=== PATIENT | female | born 1985 | race Caucasian/White ===

== ENCOUNTER 2017-03-09 16:27 | Emergency (ER) | payer OTHER ==
[2017-03-09 16:32] VITALS: BP 117/81; PULSE 86; TEMP 98.3; BMI 21.6
--- NOTE | 2017-03-09 17:07 | PDOC ---
History of Present Illness - General Chief Complaint: Injury Stated Complaint: SWOLLEN LT FOOT Time Seen by Provider: 03/09/17 16:54 History Source: Patient Exam Limitations: No Limitations - History of Present Illness Initial Comments: 03/09/17 17:11 My Chief complaint: Twisted left foot complaining of pain left foot. History of present illness: Patient is a 31-year-old female with no significant medical history here today complaining of pain and left dorsal foot since twisting it after tripping 3 days ago. Patient has slight swelling over her left second and third metatarsal areas with slight bruising. Patient is ambulating with limp. Patient has elevated the foot and has iced it but the pain would go away however it has not. Patient is unsure of status. She denies any numbness of left foot or any other injury. Occurred: reports: other (3 days ago ) Severity: Yes: moderate (left foot over 2nd & 3rd metatarsal area) Lower Extremity Pain Location: left: foot (over 2nd and 3rd mcp jt ) Method of Injury: Yes: twisted Modifying Factors: improves with: immobilization Lower Ext. Injury Location - Specific Injury Location Foot: left foot bone tenderness (over 2nd & 3rd metatarsal ) Extremity Pain Location - Extremity Pain Location Extremity Pain Locations: left: foot (over 2nd % 3rd metatarsal ) Past History - Past Medical History Allergies/Adverse Reactions: Allergies Allergy/AdvReac Type Severity Reaction Status Date / Time No Known Allergies Allergy Verified 03/09/17 16:32 Home Medications: Ambulatory Orders NK [No Known Home Medication] 03/09/17 Other medical history: NONE - Immunization History Td Vaccination: Yes Immunization Up to Date: Yes - Psycho/Social/Smoking Cessation Hx Anxiety: No Suicidal Ideation: No Smoking Status: No Smoking History: Never smoked Years of Tobacco Use: 0 Number of Cigarettes Smoked Daily: 0 Cigars Per Day: 0 Hx Alcohol Use: Yes (SOCIAL) Drug/Substance Use Hx: No Substance Use Type: None Review of Systems - Review of Systems Able to Perform ROS?: Yes Constitutional: No: Symptoms Reported HEENTM: No: Symptoms Reported Respiratory: No: Symptoms reported Cardiac (ROS): No: Symptoms Reported ABD/GI: No: Symptoms Reported : No: Symptoms Reported Musculoskeletal: Yes: Joint Pain (left foot over 2nd and 3rd metatarsal ), Joint Swelling (left foot over 2nd & 3rd metatarsal ) Integumentary: No: Symptoms Reported Neurological: No: Symptoms reported *Physical Exam - Vital Signs Last Vital Signs Temp Pulse Resp BP Pulse Ox 98.3 F 86 20 117/81 99 03/09/17 16:29 03/09/17 16:29 03/09/17 16:29 03/09/17 16:29 03/09/17 16:29 - Physical Exam General Appearance: Yes: Appropriately Dressed Vascular Pulses: Doralis-Pedis (L): 4+ Extremity: positive: Normal Capillary Refill, Normal Inspection, Tender (over left 2nd & 3rd metatarsal), Swelling (over left 2nd & 3rd metatarsal slight ) Integumentary: positive: Swelling (over left 2nd and 3rd metatarsal dorsal aspect) Neurologic: positive: Normal Response (left foot ), Respond to painful stimul ( left foot ). negative: Sensory Deficit (left foot ) Deep Tendon Reflexes: Ankle (L): 4+ (no induration ) Procedures - Consent Consent obtained: From Patient - Splinting Splint Location: Left: Foot Pre-Proc Neuro Vasc Exam: normal Issac Bandage: 3" Sling: No Complications: No Medical Decision Making - Medical Decision Making 03/09/17 17:13 Patient is a 31-year-old female with no significant medical history here today complaining of pain and left dorsal foot since twisting it after tripping 3 days ago. Patient has slight swelling over her left second and third metatarsal areas with slight bruising. Patient is ambulating with limp. Patient has elevated the foot and has iced it but the pain would go away however it has not. Patient is unsure of status. She denies any numbness of left foot or any other injury. R/O fracture left foot PLAN: urine hcg XRay left foot/ankle L to moderate soft tissue swelling over the dorsal aspect of the foot without gross evidence of a fracture or dislocation. Correlate clinically per Dr. Saji Davenport wrap to left foot crutches given Patient follow-up with orthopedist as soon as possible 03/09/17 18:29 *DC/Admit/Observation/Transfer Diagnosis at time of Disposition: Sprain of foot Qualifiers: Encounter type: initial encounter Laterality: left Qualified Code(s): S93.602A - Unspecified sprain of left foot, initial encounter - Discharge Dispostion Disposition: HOME Condition at time of disposition: Stable - Referrals Referrals: Bashir Dockery MD [Primary Care Provider] - Rafa Wilkes MD [Staff Physician] - - Patient Instructions Additional Instructions: Elevate left foot as much as possible and wear Issac wrap during the day take off at night and use crutches for ambulation Follow up with orthopedist pedis as soon as possible Take ibuprofen as needed as directed by home health aide for pain Patient voiced understanding of discharge instructions and all questions were answered
[2017-03-09] MEDS ORDERED: IBUPROFEN 600 MG TABLET (FP) PO ONE ×2 (17:39→17:54)
== END 2017-03-09 18:38 | disposition home or self-care (01) ==
LOC: JERFT 16:27 → JER 16:27 → JERFT 18:38
DX: S93.602A Unspecified sprain of left foot, initial encounter (principal); W01.0XXA Fall on same level from slipping, tripping and stumbling without subsequent striking against object, initial encounter; X50.1XXA Overexertion from prolonged static or awkward postures, initial encounter; Y93.89 Activity, other specified; Y92.89 Other specified places as the place of occurrence of the external cause
CPT/HCPCS: 73610-TC-LT; 73630-TC-LT; 84703; 99281-25

== ENCOUNTER 2019-01-10 19:10 | Emergency (ER) | payer OTHER ==
[2019-01-10 19:14] VITALS: BP 130/83; PULSE 76; TEMP 98.1; BMI 21.6
--- NOTE | 2019-01-10 19:57 | PDOC ---
*Physical Exam - Vital Signs Last Vital Signs Temp Pulse Resp BP Pulse Ox 98.1 F 76 18 130/83 100 01/10/19 19:12 01/10/19 19:12 01/10/19 19:12 01/10/19 19:12 01/10/19 19:12 ED Treatment Course - LABORATORY CBC & Chemistry Diagram: 01/10/19 20:37 01/10/19 20:37 Medical Decision Making - Medical Decision Making 01/10/19 19:56 Patient seen by the advanced practice provider under my direct supervision. Ancillary testing reviewed as necessary. I agree with plan as outlined by the advanced practice provider. *DC/Admit/Observation/Transfer Diagnosis at time of Disposition: Adnexal pain Low back pain Qualifiers: Chronicity: acute Back pain laterality: right Sciatica presence: without sciatica Qualified Code(s): M54.5 - Low back pain - Discharge Dispostion Disposition: HOME Condition at time of disposition: Stable - Prescriptions Prescriptions: Cyclobenzaprine HCl 5 mg PO HS #7 tablet Ibuprofen 600 mg PO Q6H #30 tablet - Referrals Referrals: Bashir Docekry MD [Primary Care Provider] - Joi Fisher DO [Staff Physician] - - Patient Instructions Printed Discharge Instructions: DI for Low Back Pain Additional Instructions: You were evaluated for your pain today. Your lab work and ultrasound does not show any evidence of cysts I suspect her pain is referred from her low back after your injury last week. Please take Motrin 600 mg every 6 hours for pain Please take the Flexeril before bed. Do not drink or drive after taking this medication as well make you sleepy. 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 - Post Discharge Activity Forms/Work/School Notes: Back to Work
[2019-01-10] MEDS ORDERED: ACETAMINOPHEN 325 MG TABLET (FP) PO ONE (20:03)
--- NOTE | 2019-01-10 20:04 | PDOC ---
History of Present Illness - General Chief Complaint: Pain Stated Complaint: PCP SENT [facility] Time Seen by Provider: 01/10/19 19:55 History Source: Patient Exam Limitations: No Limitations Past History - Travel Traveled outside of the country in the last 30 days: No Close contact w/someone who was outside of country & ill: No - Past Medical History Allergies/Adverse Reactions: Allergies Allergy/AdvReac Type Severity Reaction Status Date / Time No Known Allergies Allergy Verified 01/10/19 21:53 Home Medications: Ambulatory Orders Cyclobenzaprine HCl 5 mg PO HS #7 tablet 01/10/19 Ibuprofen 600 mg PO Q6H #30 tablet 01/10/19 COPD: No - Immunization History Td Vaccination: Yes Immunization Up to Date: Yes - Suicide/Smoking/Psychosocial Hx Smoking Status: No Smoking History: Never smoked Years of Tobacco Use: 0 Number of Cigarettes Smoked Daily: 0 Cigars Per Day: 0 Hx Alcohol Use: Yes (SOCIAL) Drug/Substance Use Hx: No Substance Use Type: None Review of Systems - Review of Systems Able to Perform ROS?: Yes Comments:: 01/10/19 20:02 CONSTITUTIONAL: Absent: fever, chills, diaphoresis, generalized weakness, malaise, loss of appetite HEENT: Absent: rhinorrhea, nasal congestion, throat pain, throat swelling, difficulty swallowing, mouth swelling, ear pain, eye pain, visual Changes CARDIOVASCULAR: Absent: chest pain, loss of consciousness, palpitations, irregular heart rate, peripheral edema RESPIRATORY: Absent: cough, shortness of breath, dyspnea with exertion, orthopnea, wheezing, stridor, hemoptysis GASTROINTESTINAL: Absent: abdominal pain, abdominal distension, nausea, vomiting, diarrhea, constipation, melena, hematochezia GENITOURINARY: Present: R pelvic pain Absent: dysuria, frequency, urgency, hesitancy, hematuria , flank pain, genital pain MUSCULOSKELETAL: Absent: myalgia, arthralgia, joint swelling SKIN: Absent: rash, itching, pallor HEMATOLOGIC/IMMUNOLOGIC: Absent: easy bleeding, easy bruising, lymphadenopathy, frequent infections ENDOCRINE: Absent: unexplained weight gain, unexplained weight loss, heat intolerance, cold intolerance NEUROLOGIC: Absent: headache, focal weakness or paresthesias, dizziness, unsteady gait, seizure, mental status changes, bladder or bowel incontinence PSYCHIATRIC: Absent: anxiety, depression, suicidal or homicidal ideation, hallucinations. Is the patient limited Lao proficient: No *Physical Exam - Vital Signs Last Vital Signs Temp Pulse Resp BP Pulse Ox 98.1 F 76 18 130/83 100 01/10/19 19:12 01/10/19 19:12 01/10/19 19:12 01/10/19 19:12 01/10/19 19:12 - Physical Exam Comments: 01/10/19 20:02 GENERAL: Well developed, well nourished. Awake and alert. No acute distress. HEENT: Normocephalic, atraumatic. PERRLA, EOMI. No conjunctival pallor. Sclera are non- icteric. Moist mucous membranes. Oropharynx is clear. NECK: Supple. Full ROM. No JVD. Carotid pulses 2+ and symmetric, without bruits. No thyromegaly. No lymphadenopathy. CARDIOVASCULAR: Regular rate and rhythm. No murmurs, rubs, or gallops. Distal pulses are 2+ and symmetric. PULMONARY: No evidence of respiratory distress. Lungs clear to auscultation bilaterally. No wheezing, rales or rhonchi. ABDOMINAL: TTP of the R adenexa. Soft. Non-distended. No rebound or guarding. No organomegaly. Normoactive bowel sounds. MUSCULOSKELETAL Normal range of motion at all joints. No bony deformities or tenderness. No CVA tenderness. EXTREMITIES: No cyanosis. No clubbing. No edema. No calf tenderness. SKIN: Warm and dry. Normal capillary refill. No rashes. No jaundice. NEUROLOGICAL: Alert, awake, appropriate. Cranial nerves 2-12 intact. No deficits to light touch and temperature in face, upper extremities and lower extremities. No motor deficits in the in face, upper extremities and lower extremities. Normoreflexic in the upper and lower extremities. Normal speech. Toes are down- going bilaterally. Gait is normal without ataxia. PSYCHIATRIC: Cooperative. Good eye contact. Appropriate mood and affect. ED Treatment Course - LABORATORY CBC & Chemistry Diagram: 01/10/19 20:37 01/10/19 20:37 Medical Decision Making - Medical Decision Making 01/10/19 20:06 Patient is a 33-year-old female past medical history of ovarian cysts, who presents to the emergency department today for right lower pelvic pain. Patient states that her pain began Tuesday and has not gotten better. She states she noticed the pain began after lifting a family member up the stairs. She states that she feels a pressure in that area. States her last menstrual cycle was on . She is sexually active with one partner her . Denies fevers, chills, vaginal bleeding, foul-smelling discharge, rashes, nausea, vomiting and diarrhea. A/P: Lower pelvic cramping On exam right adnexal tenderness. Pt defers pelvic exam as she is going for ultrasound Given history of cysts, we'll obtain transvaginal ultrasound Basic labs and urine ordered. Reevaluate 01/10/19 23:20 Lab work is unremarkable, no UTI TVUS shows a uterine leieoma, no cysts on the R side Pt reports dysparinuria on TVUS and pain along the R adenexa. No reported CMT. Possible muscular strain? DC home with supportive therapy and MARRIAGE COUNSELOR follow up I discussed the physical exam findings, ancillary test results and final diagnoses with the patient. I answered all of the patient's questions. The patient was satisfied with the care received and felt comfortable with the discharge plan and treatment plan. The Patient agrees to follow up with the primary care physician/specialist within 24-72 hours. Return precautions were given. *DC/Admit/Observation/Transfer Diagnosis at time of Disposition: Adnexal pain Low back pain Qualifiers: Chronicity: acute Back pain laterality: right Sciatica presence: without sciatica Qualified Code(s): M54.5 - Low back pain - Discharge Dispostion Disposition: HOME Condition at time of disposition: Stable Decision to Admit order: No - Prescriptions Prescriptions: Cyclobenzaprine HCl 5 mg PO HS #7 tablet Ibuprofen 600 mg PO Q6H #30 tablet - Referrals Referrals: Bashir Dockery MD [Primary Care Provider] - Joi Fisher DO [Staff Physician] - - Patient Instructions Printed Discharge Instructions: DI for Low Back Pain Additional Instructions: You were evaluated for your pain today. Your lab work and ultrasound does not show any evidence of cysts I suspect her pain is referred from her low back after your injury last week. Please take Motrin 600 mg every 6 hours for pain Please take the Flexeril before bed. Do not drink or drive after taking this medication as well make you sleepy. Please follow up with MARRIAGE COUNSELOR this week if her symptoms are not improving Return to the ER for any new or worsening symptoms. - Post Discharge Activity Forms/Work/School Notes: Back to Work
[2019-01-10 20:57] LABS: BASO % 1.2 % (0-2.0); EOS % 1.8 % (0-4.5); HEMATOCRIT 36.2 % (32.4-45.2); HEMOGLOBIN 12.2 GM/dL (10.7-15.3); LYMPH % 33.7 % (8-40); MCH 31.1 pg (25.7-33.7); MCHC 33.7 g/dl (32.0-36.0); MEAN CELL VOLUME 92.2 fl (80-96); MEAN PLT VOLUME 8.9 fl (7.5-11.1); MONO % 6.5 % (3.8-10.2); NEUT % 56.8 % (42.8-82.8); PLATELET COUNT 272 K/MM3 (134-434); RBC 3.93 M/mm3 (3.60-5.2); RDW 12.5 % (11.6-15.6); WHITE BLOOD COUNT 11.1 K/mm3 (4.0-10.0)
[2019-01-10] MEDS ORDERED: ACETAMINOPHEN 325 MG TABLET (FP) ONE (20:58)
[2019-01-10 21:11] LABS: INR 0.95 (0.83-1.09); PROTHROMBIN TIME (PATIENT) 11.2 SEC (9.7-13.0)
[2019-01-10 21:12] LABS: PH,URINE 6.5 (5.0-8.0); URINE APPEARANCE CLEAR; URINE BILIRUBIN NEGATIVE (NEGATIVE); URINE COLOR YELLOW; URINE GLUCOSE (UA) NEGATIVE (NEGATIVE); URINE KETONE 1+ (NEGATIVE); URINE LEUK ESTERASE NEGATIVE (NEGATIVE); URINE NITRITE NEGATIVE (NEGATIVE); URINE PROTEIN NEGATIVE (NEGATIVE); URINE UROBILINOGEN 0.2 mg/dL (0.2-1.0)
[2019-01-10 21:15] LABS: HCG,QUALITATIVE URINE Negative
[2019-01-10 21:20] LABS: ALBUMIN 4.3 g/dl (3.4-5.0); ALK PHOS 59 U/L (45-117); ANION GAP 7 MMOL/L (8-16); BILIRUBIN,TOTAL 0.4 mg/dL (0.2-1); BLOOD UREA NITROGEN 11 mg/dL (7-18); CALCIUM 9.3 mg/dL (8.5-10.1); CHLORIDE 103 mmol/L (98-107); CO2 28 mmol/L (21-32); CREATININE 0.6 mg/dL (0.55-1.3); GLUCOSE,RANDOM 92 mg/dL (74-106); POTASSIUM 4.4 mmol/L (3.5-5.1); SGOT/AST 14 U/L (15-37); SGPT/ALT 21 U/L (13-61); SODIUM 137 mmol/L (136-145); TOT PROT 7.5 g/dl (6.4-8.2)
== END 2019-01-10 23:50 | disposition home or self-care (01) ==
LOC: JER 19:10
DX: R10.31 Right lower quadrant pain (principal); M54.5 Low back pain
CPT/HCPCS: 36415; 76830-TC; 80053; 81003; 84703; 85025; 85610; 99282-25

== ENCOUNTER 2019-05-28 14:05 | Emergency (ER) | payer OTHER ==
[2019-05-28 14:11] VITALS: BP 121/77; PULSE 91; TEMP 98; BMI 22.4
[2019-05-28] MEDS ORDERED: IBUPROFEN 600 MG TABLET (FP) PO ONE ×2 (14:11→15:32)
--- NOTE | 2019-05-28 14:11 | PDOC ---
Rapid Medical Evaluation Medical Evaluation: Allergies Allergy/AdvReac Type Severity Reaction Status Date / Time No Known Allergies Allergy Verified 01/10/19 21:53 I have performed a brief in-person evaluation of this patient. The patient presents with a chief complaint of: sprained R ankle tonight; heard pop; was hearing heels Pertinent physical exam findings: R ankle/foot normal color, +swelling and pain along R lateral malleolus; RLE neurovascularly intact I have ordered the following: Xray, Motrin The patient will proceed to the ED for further evaluation. 05/28/19 14:09
--- NOTE | 2019-05-28 15:44 | PDOC ---
History of Present Illness - General Chief Complaint: Injury Stated Complaint: RT ANKLE INJURY Time Seen by Provider: 05/28/19 14:08 History Source: Patient Exam Limitations: No Limitations - History of Present Illness Initial Comments: 05/28/19 15:37 33 year old female with no significant medical or significant medical history presents with injury to right ankle and foot. Patient reports while walking home in heels twisted her ankle and heard a pop sound. Reports pain with movement and weight bearing. Used ice compress with no relief of symptoms. Occurred: reports: this morning Severity: Yes: moderate Lower Extremity Pain Location: right: foot, ankle Method of Injury: Yes: twisted Modifying Factors: improves with: immobilization, pain medication Lower Ext. Injury Location - Specific Injury Location Hips: bilateral hip: no evidence of injury Legs: bilateral: normal inspection Knees: bilateral no evidence of injury Ankle: right limited range of motion, right swelling Foot: right foot pain, right foot swelling Extremity Pain Location - Extremity Pain Location Extremity Pain Locations: right: foot, ankle Past History - Travel Traveled outside of the country in the last 30 days: No Close contact w/someone who was outside of country & ill: No - Past Medical History Allergies/Adverse Reactions: Allergies Allergy/AdvReac Type Severity Reaction Status Date / Time No Known Allergies Allergy Verified 05/28/19 14:12 Home Medications: Ambulatory Orders Cyclobenzaprine HCl 5 mg PO HS #7 tablet 01/10/19 Ibuprofen 600 mg PO Q6H #30 tablet 01/10/19 Ibuprofen 600 mg PO TID #10 tablet 05/28/19 COPD: No - Immunization History Td Vaccination: Yes Immunization Up to Date: Yes - Suicide/Smoking/Psychosocial Hx Smoking Status: No Smoking History: Never smoked Years of Tobacco Use: 0 Number of Cigarettes Smoked Daily: 0 Cigars Per Day: 0 Hx Alcohol Use: Yes Drug/Substance Use Hx: No Substance Use Type: None Review of Systems - Review of Systems Able to Perform ROS?: Yes Is the patient limited [place] proficient: No Constitutional: No: Chills, Fever HEENTM: No: Nose Pain, Throat Pain Respiratory: No: Shortness of Breath, Wheezing Cardiac (ROS): No: Edema, Lightheadedness ABD/GI: No: Constipated, Poor Appetite, Poor Fluid Intake Integumentary: No: Bruising, Erythema Neurological: No: Numbness, Tingling *Physical Exam - Vital Signs Last Vital Signs Temp Pulse Resp BP Pulse Ox 98.0 F 91 H 16 121/77 97 05/28/19 14:05/28/19 14:05/28/19 14:05/28/19 14:05/28/19 14:09 - Physical Exam General Appearance: Yes: Nourished, Appropriately Dressed HEENT: positive: EOMI, SHAWN, TMs Normal, Pharynx Normal Neck: positive: Supple. negative: Lymphadenopathy (R), Lymphadenopathy (L) Respiratory/Chest: positive: Lungs Clear Cardiovascular: positive: Regular Rhythm, Regular Rate Extremity: positive: Swelling, Erythema Integumentary: positive: Bruising Neurologic: positive: straight truck driver II-XII NML intact, Fully Oriented Medical Decision Making - Medical Decision Making 05/28/19 15:46 33 year old female with no significant medical or significant medical history presents with injury to right ankle and foot. Plan analgesia xray of right foot and ankle 05/28/19 16:22 xray negative for fracture awa wrap applied and patient referred to orthopedics for follow up *DC/Admit/Observation/Transfer Diagnosis at time of Disposition: Left ankle sprain Qualifiers: Encounter type: initial encounter Involved ligament of ankle: unspecified ligament Qualified Code(s): S93.402A - Sprain of unspecified ligament of left ankle, initial encounter - Discharge Dispostion Disposition: HOME Condition at time of disposition: Good Decision to Admit order: No - Prescriptions Prescriptions: Ibuprofen 600 mg PO TID #10 tablet - Referrals Referrals: Bashir Dockery MD [Primary Care Provider] - - Patient Instructions Printed Discharge Instructions: DI for Ankle Sprain Additional Instructions: apply ice compress to ankle for 20 minutes for 3 to 4 minutes Elevated leg at rest may remove awa wrap for showering and sleeping Call ortho for follow up appointment - Post Discharge Activity Forms/Work/School Notes: Back to Work
== END 2019-05-28 16:30 | disposition home or self-care (01) ==
LOC: JERFT 14:05
DX: S93.401A Sprain of unspecified ligament of right ankle, initial encounter (principal); X50.1XXA Overexertion from prolonged static or awkward postures, initial encounter; Y93.01 Activity, walking, marching and hiking; Y92.89 Other specified places as the place of occurrence of the external cause; Y99.8 Other external cause status
CPT/HCPCS: 73610-TC-RT-FY; 73630-TC-RT-FY; 99281-25

== ENCOUNTER 2023-01-17 03:49 | Day surgery (SDC) | payer OTHER ==
[2023-01-13 12:06] VITALS: BMI 21.1
[2023-01-17] MEDS ORDERED: IBUPROFEN 400 MG TABLET (FP) PO PRN (07:58)
[2023-01-17] MEDS ORDERED: ACETAMINOPHEN 325 MG TABLET (FP) PO PRN (07:58)
[2023-01-17] MEDS ORDERED: oxyCODONE HCL 5 MG TABLET PO PRN (08:41)
[2023-01-17] MEDS ORDERED: ONDANSETRON 4 MG/2 ML VIAL IVPUSH PRN (08:41)
[2023-01-17] MEDS ORDERED: LACTATED RINGERS SOLUTION 1,000 ML IV SCH (08:45)
[2023-01-17] MEDS ORDERED: PROPOFOL 20 ML ONE (08:52)
[2023-01-17] MEDS ORDERED: MIDAZOLAM HCL 2 MG/2 ML SINGLE DOSE VIAL ONE (08:52)
[2023-01-17] MEDS ORDERED: KETOROLAC TROMETHAMINE 30 MG/1 ML VIAL ONE (09:19)
[2023-01-17] MEDS ORDERED: DEXAMETHASONE SOD PHOSPHATE 4 MG/1 ML VIAL ONE (09:19)
[2023-01-17] MEDS ORDERED: ONDANSETRON 4 MG/2 ML VIAL ONE (09:19)
[2023-01-17 11:22] VITALS: RESP 20; TEMP 96.8
[2023-01-17 13:03] VITALS: BP 112/65; PULSE 70
== END 2023-01-17 11:40 | disposition home or self-care (01) ==
LOC: JASU-SURG 03:49
PROVIDERS: ATTEND Obstetrics & Gynecology
PROC: 0UB98ZZ Excision of Uterus, Via Natural or Artificial Opening Endoscopic (ICD-10-PCS; principal; 2023-01-17 08:30)
DX: N92.0 Excessive and frequent menstruation with regular cycle (principal); D25.0 Submucous leiomyoma of uterus
CPT/HCPCS: 81025; 88305-TC; 94760